=== PATIENT | male | born 1965 | race Caucasian/White ===

== ENCOUNTER 2021-05-10 22:42 | Inpatient (IN) | payer MEDICARE, SELFPAY ==
[2021-05-10 23:35] LABS: #Lymphocytes 0.9 thou/uL (1.20-3.40); #Monocytes 0.4 thou/uL (0.11-0.59); #Neutrophils 6.2 thou/uL (1.40-6.50); %Basophils 0.1 % (0.0-1.0); %Lymphocytes 11.7 % (21.0-51.0); %Monocytes 5.6 % (0.0-10.0); %Neutrophils 82.5 % (42.0-75.0); Hemoglobin 13.8 g/dL (14.0-18.0); Mean Corpuscular HGB CONC 34.3 g/dL (32.0-36.0); Mean Corpuscular Hemoglobin 33.5 pg (27.0-31.0); Mean Corpuscular Volume 97.7 fL (78.0-98.0); Mean Platelet Volume 7.8 fL (7.4-10.4); Platelet Count 141 thou/uL (130-400); RBC Distribution Width 13.5 % (11.5-14.5); Red Blood Cell (RBC) Count 4.13 mill/uL (4.70-6.10); White Blood Cell (WBC) Count 7.6 thou/uL (4.8-10.8)
[2021-05-10 23:58] LABS: ALT (SGPT) 59 U/L (8-55); AST (SGOT) 52 U/L (5-34); Albumin 4.3 g/dL (3.5-5.0); Alkaline Phosphatase 56 U/L (40-110); Anion Gap 20 mmol/L (10-20); BUN (Urea Nitrogen) 20 mg/dL (8.4-25.7); Calc. Creatinine Clearance 0 mL/min (70-130); Calcium 9.4 mg/dL (7.8-10.44); Carbon Dioxide 19 mmol/L (22-29); Chloride 98 mmol/L (98-107); Globulin 3.2 g/dL (2.4-3.5); Glucose 114 mg/dL (70-105); Potassium 4.4 mmol/L (3.5-5.1); Protein, Total 7.5 g/dL (6.0-8.3); Sodium 133 mmol/L (136-145)
[2021-05-11] MEDS ORDERED: Lorazepam 1 MG TAB PO PRN
[2021-05-11] MEDS ORDERED: Lorazepam 2 MG/ML VIAL ONE ×3 (00:07→03:12)
[2021-05-11] MEDS ORDERED: Folic Acid 1 MG, Multivitamins, Adult 10 ML in Dextrose 5 %-0.45 % NaCl 1,000 ML IV SCH (01:30)
[2021-05-11] MEDS ORDERED: Thiamine HCl 200 MG/2 ML VIAL SLOW IVP SCH (01:30)
[2021-05-11] MEDS ORDERED: Diazepam 5 MG TAB ONE (01:55)
[2021-05-11] MEDS ORDERED: hydrALAZINE 20 MG/ML VIAL SLOW IVP PRN (03:44)
[2021-05-11] MEDS ORDERED: Acetaminophen 500 MG TAB PO PRN (03:47)
[2021-05-11 03:55] LABS: SARS-CoV-2 NAA Rapid Test Not Detected (NotDetected)
[2021-05-11] MEDS ORDERED: Electrolyte Replacement Protocol 1 EACH FS PRN (04:00)
[2021-05-11] MEDS ORDERED: Ondansetron ODT 4 MG TAB PO PRN (04:00)
[2021-05-11] MEDS ORDERED: Lorazepam 2 MG/ML VIAL IM PRN (04:00)
[2021-05-11] MEDS ORDERED: Folic Acid 1 MG TAB ONE (09:06)
[2021-05-11] MEDS ORDERED: Lorazepam 1 MG TAB ONE (09:06)
[2021-05-11] MEDS: Folic Acid 1 MG TAB PO SCH (09:17)
[2021-05-11] MEDS: Lorazepam 1 MG TAB PO SCH ×4 (09:17→22:55)
[2021-05-11] MEDS: Sodium Chloride 0.9% 1,000 ML IV SCH ×2 (09:17→22:56)
[2021-05-11] MEDS: Multivit, Therapeutic 1 TAB PO SCH (09:51)
[2021-05-11] MEDS: Thiamine HCl 200 MG/2 ML VIAL SLOW IVP SCH (09:51)
[2021-05-11 18:12] VITALS: BMI 38.5
[2021-05-11] MEDS ORDERED: FLU VACC QS2021-22(6MOS UP)/PF 60 MCG/0.5 ML SYRINGE IM ONE (19:00)
[2021-05-11] MEDS ORDERED: (Bictegrav/Emtricit/Tenofov Ala [Biktarvy 50-200-25 Mg Tablet] PO SCH (22:24)
[2021-05-12] MEDS ORDERED: Lorazepam 1 MG TAB PO PRN (04:00)
[2021-05-12] MEDS ORDERED: Lorazepam 1 MG TAB PO SCH (06:00)
[2021-05-12] MEDS: Thiamine HCl 200 MG/2 ML VIAL SLOW IVP SCH (06:04)
[2021-05-12 06:05] LABS: ALT (SGPT) 48 U/L (8-55); AST (SGOT) 44 U/L (5-34); Albumin 3.5 g/dL (3.5-5.0); Alkaline Phosphatase 46 U/L (40-110); Anion Gap 11 mmol/L (10-20); BUN (Urea Nitrogen) 16 mg/dL (8.4-25.7); Bilirubin, Direct 0.3 mg/dL (0.1-0.3); Bilirubin, Total 0.6 mg/dL (0.2-1.2); Calc. Creatinine Clearance 134 mL/min (70-130); Calcium 8.9 mg/dL (7.8-10.44); Carbon Dioxide 24 mmol/L (22-29); Chloride 104 mmol/L (98-107); Glucose 97 mg/dL (70-105); Magnesium 1.7 mg/dL (1.6-2.6); Potassium 3.4 mmol/L (3.5-5.1); Protein, Total 6.1 g/dL (6.0-8.3); Sodium 136 mmol/L (136-145)
[2021-05-12 06:09] LABS: #Lymphocytes 1.2 thou/uL (1.20-3.40); #Monocytes 0.2 thou/uL (0.11-0.59); #Neutrophils 1.7 thou/uL (1.40-6.50); %Basophils 0.9 % (0.0-1.0); %Eosinophils 1.4 % (0.0-10.0); %Lymphocytes 37.9 % (21.0-51.0); %Monocytes 6.1 % (0.0-10.0); %Neutrophils 53.7 % (42.0-75.0); Hemoglobin 11.4 g/dL (14.0-18.0); Mean Corpuscular HGB CONC 33.3 g/dL (32.0-36.0); Mean Platelet Volume 7.9 fL (7.4-10.4); Platelet Count 75 thou/uL (130-400); Platelet Morphology Comment Appears Decreased; RBC Distribution Width 13.2 % (11.5-14.5); RBC Morphology Normal; Red Blood Cell (RBC) Count 3.45 mill/uL (4.70-6.10); White Blood Cell (WBC) Count 3.1 thou/uL (4.8-10.8)
[2021-05-12] MEDS ORDERED: Potassium Chloride 20 MEQ TAB PO SCH ×2 (06:15→08:45)
[2021-05-12] MEDS ORDERED: Magnesium 2 GM/50 ML 2 GM in Premix Bag 1 BAG IVPB SCH (06:15)
[2021-05-12 07:43] VITALS: BP 117/68; TEMP 97.6
[2021-05-12] MEDS: Folic Acid 1 MG TAB PO SCH (08:54)
[2021-05-12] MEDS: Multivit, Therapeutic 1 TAB PO SCH (08:54)
[2021-05-12] MEDS ORDERED: lamoTRIgine 100 MG TAB PO SCH (09:00)
[2021-05-13] MEDS ORDERED: Lorazepam 1 MG TAB PO PRN (04:00)
[2021-05-13] MEDS ORDERED: Lorazepam 0.5 MG TAB PO SCH (06:00)
[2021-05-14] MEDS ORDERED: Lorazepam 0.5 MG TAB PO PRN (06:00)
[2021-05-14] MEDS ORDERED: Thiamine 100 MG TAB PO SCH (09:00)
== END 2021-05-12 10:52 | disposition home or self-care (01) | DRG 897 ==
LOC: ERS 22:42 → ERHOLD 05-11 03:32 → 2SW 05-11 12:24 → OBSVTOIN 05-11 13:24
PROVIDERS: ADMIT Internal Medicine; ATTEND Physician Assistant
DX: F10.239 Alcohol dependence with withdrawal, unspecified (principal); N17.9 Acute kidney failure, unspecified; E87.1 Hypo-osmolality and hyponatremia; I10 Essential (primary) hypertension; F31.9 Bipolar disorder, unspecified; R74.8 Abnormal levels of other serum enzymes; F41.9 Anxiety disorder, unspecified; Z20.822 Contact with and (suspected) exposure to COVID-19
CPT/HCPCS: 36415; 36416; 80048; 80053; 80076; 80307; 83735; 85025; 90471; 90686; 93005; G0008; J2060; J3411; J3475; J7042; J7050; U0002